=== PATIENT | female | born 1940 ===

== ENCOUNTER 2024-05-05 14:56 | Emergency (ER) | payer MEDICARE ==
[2024-05-05] MEDS ORDERED: DIPH,PERTUS(ACELL)TETVAC-LF 0.5 ML VIAL IM ONE (15:25)
[2024-05-05] MEDS ORDERED: hydrALAZINE HCL 20 MG/ML 1 ML VIAL ONE (17:42)
--- NOTE | 2024-05-25 08:41 | CT ---
Patient: Mikaela Lam Ordering Physician: Unknown, Unknown ID: [id number] Phone, Pager: Colin ne: N/A Pager: N/A : 1940 Age/Gender: 83Y, F Primary Location: N/A Procedure: CT brain cspine wo con Study Date: 05/05/2024 4:11:00 PM EXAMINATION TYPE: CT brain cspine wo con DATE OF EXAM: 05/05/2024 COMPARISON: HISTORY: Pain Unenhanced CT of the brain was performed. The ventricles, basal cisterns and sulci overlying the cerebral convexities demonstrate mild enlargem ent. There is no evidence for intracranial hemorrhage or sulcal effacement. There is decreased attenuatio n about the periventricular white matter and deep white matter of both cerebral hemispheres, compatib le with chronic small vessel ischemia. No mass effects are seen. If symptoms persist consider MRI. Osseous calvarium is intact. Posterior parietal occipital scalp hematoma IMPRESSION: 1. Age related atrophic and chronic small vessel ischemic change without acute intracranial process seen at this time. CT Cervical Spine: Unenhanced CT of the cervical spine was performed with bone and soft tissue window settings submitted . Coronal and sagittal reconstruction is obtained. There is normal alignment and prevertebral soft tissues. No evidence for acute cervical fracture . 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 Biapic al scarring. IMPRESSION: 1. No evidence for acute fracture or subluxation of the cervical spine.
== END 2024-05-05 18:40 | disposition home or self-care (01) ==
LOC: EC 14:56
CPT/HCPCS: 70450; 72125; 90471; 90715; 96374; 99284